=== PATIENT | male | born 1960 | race Hispanic/Latino ===

== ENCOUNTER 2018-08-07 05:30 | Observation (INO) | payer MEDICARE ==
[2018-08-05 11:33] LABS: BASOPHILS % (AUTO) 1.1 % (0.0-5.0); EOSINOPHILS % (AUTO) 0.9 % (0.0-8.0); HEMATOCRIT 48.6 % (42-54); LYMPHOCYTES % (AUTO) 19.6 % (21.0-51.0); MEAN CORPUSCULAR HEMOGLOBIN 28.9 pg (27.0-33.0); MEAN CORPUSCULAR HGB CONC 33.2 g/dL (32.0-36.0); MONOCYTES % (AUTO) 10.6 % (3.0-13.0); NEUTROPHILS % (AUTO) 67.8 % (40.0-77.0); PLATELET COUNT (AUTO) 246 K/uL (130-400); RED BLOOD CELL COUNT(AUTO) 5.59 MIL/uL (4.50-6.20); WHITE BLOOD COUNT (AUTO) 7.4 K/uL (4.8-10.8)
[2018-08-05 11:52] LABS: INR 1.04 (0.85-1.15); PARTIAL THROMBOPLASTIN TIME 31.2 SEC (26.3-35.5); PROTHROMBIN TIME 10.9 SEC (9.6-11.6)
[2018-08-05 11:53] LABS: CREATININE 1.4 mg/dL (0.5-1.5); POTASSIUM 4.4 mmol/L (3.5-5.1)
[2018-08-05 11:56] VITALS: BP 137/76
[2018-08-05 12:51] LABS: BILIRUBIN,URINE Negative (NEGATIVE); COLOR,URINE Yellow (YELLOW); GLUCOSE, URINE (UA) Negative (NEGATIVE); KETONES,URINE Negative (NEGATIVE); LEUKOCYTE ESTERASE ,URINE Negative (NEGATIVE); NITRATE,URINE Negative (NEGATIVE); OCCULT BLOOD,URINE Negative (NEGATIVE); PH,URINE 6.5 (5.0-8.0); PROTEIN,URINE Negative (NEGATIVE); UROBILINOGEN,URINE 0.2 mg/dL (0.2-1.0)
[2018-08-05 12:52] LABS: APPEARANCE,URINE CLEAR (CLEAR)
--- NOTE | 2018-08-06 11:26 | NUR ---
note reported elevated creat, orders to repeat and start hydration on arrival
[~2018-08-07] VITALS: Ht 180.3 cm; Wt 88.5 kg
[2018-08-07] VITALS (16 sets, daily range): BP systolic 98–122; BP diastolic 40–80
[~2018-08-07 05:30] MED LIST: AEC81 PO; ATOR40TA71 PO; CLOP75TA14 PO; ISOS30TA6 PO; METO25TA6 PO
[2018-08-07] MEDS ORDERED: SODIUM CHLORIDE 0.9% 1000ML 1,000 ML IV SCH ×2 (06:30→08:00)
[2018-08-07 06:44] LABS: CREATININE 1.4 mg/dL (0.5-1.5); POTASSIUM 4.3 mmol/L (3.5-5.1)
[2018-08-07] MEDS ORDERED: IOHEXOL 350 MG/ML 100ML INFUS..BTL IV ONE (11:08)
[2018-08-07] MEDS ORDERED: LIDOCAINE HCL 2% 20ML ONE (11:08)
[2018-08-07] MEDS ORDERED: HEPARIN SODIUM 1000UNIT/ML 10ML VIAL ONE (11:08)
[2018-08-07] MEDS ORDERED: IOHEXOL-350 50ML VIAL IV ONE (11:13)
[2018-08-07] MEDS ORDERED: CLOPIDOGREL BISULFATE 300 MG TAB ONE (11:49)
[2018-08-07] MEDS ORDERED: NITROGLYCERIN 4.1 GM SPRAY TL ONE (11:52)
[2018-08-07] MEDS ORDERED: MORPHINE SULFATE 5 MG/ML VIAL IVP SCH (12:15)
[2018-08-07] MEDS ORDERED: ONDANSETRON HCL 4 MG/2 ML VIAL IVP SCH (12:15)
[2018-08-07] MEDS ORDERED: ONDANSETRON HCL 4 MG/2 ML VIAL IVP PRN (12:15)
[2018-08-07] MEDS ORDERED: ACETAMINOPHEN 325 MG TAB PO PRN (12:15)
[2018-08-07] MEDS ORDERED: NITROGLYCERIN 0.4 MG SL TAB SL PRN (12:15)
[2018-08-07 18:24] LABS: INR 1.06 (0.85-1.15); PARTIAL THROMBOPLASTIN TIME 37.1 SEC (26.3-35.5); PROTHROMBIN TIME 11.1 SEC (9.6-11.6)
[2018-08-07] MEDS: METOPROLOL TARTRATE 25 MG TAB PO SCH (20:09)
[2018-08-07] MEDS ORDERED: ATROPINE SULFATE 0.1 MG/ML 10 ML SYG IVP ONE (21:03)
--- NOTE | 2018-08-07 21:25 | NUR ---
sheath discontinued at this time. manual pressure held for 20 minutes. hemostasis achieved. d-stat applied along with pressure dressing. no signs of bleeding, bruising, or hematoma noted. pedal pulses are strong and palpable. will continue to monitor. patient instructed to keep leg straight and that bedrest is until 4 AM.
[2018-08-08 04:07] VITALS: BP 95/60
[2018-08-08 07:34] VITALS: BP 105/63
--- NOTE | 2018-08-08 07:40 | NUR ---
SITTING UP IN BED. AAOX3, RESP.'S EVEN AND UNLABORED. DENIES ANY SOB, DENIES ANY CURRENT PAIN. RIGHT GROIN WITH D-STAT IN PLACE, WITH ELASTOPLAST OVER D-STAT WITH GAUZE; AREA SOFT, NO ECCHYMOSIS OR HEMATOMA NOTED. FEET WARM, PP'S (+) BILATERALLY. COMPLETE ASSESSMENT DONE. CALL LIGHT WITHIN REACH, VERBALIZED ABILITY TO USE. BED LOW, SIDE RAILS UP X2. SPOUSE IN SLEEPER AT BEDSIDE.
--- NOTE | 2018-08-08 08:05 | NUR ---
DR. Doroteo RODARTE IN ROOM SPEAKING WITH PT. AND PT.'S SPOUSE AT BEDSIDE RE:PLAN OF CARE.
[2018-08-08] MEDS ORDERED: ISOSORBIDE MONO 30MG TAB SR PO SCH (09:00)
[2018-08-08] MEDS: METOPROLOL TARTRATE 25 MG TAB PO SCH (09:00)
[2018-08-08] MEDS ORDERED: ASPIRIN 81 MG EC TAB PO SCH (09:00)
[2018-08-08] MEDS ORDERED: CLOPIDOGREL BISULFATE 75 MG TAB PO SCH (09:00)
[2018-08-08] MEDS ORDERED: ATORVASTATIN CALCIUM 40 MG TABLET PO SCH (09:00)
--- NOTE | 2018-08-08 10:47 | NUR ---
Margoth WORLEY CANT HOOKER, IN ROOM SPEAKING WITH PT. RE:PLAN OF CARE AND DISCHARGE DISPOSITION.
[2018-08-08 11:54] VITALS: BP 119/76
--- NOTE | 2018-08-08 12:05 | NUR ---
HL REMOVED, CATHETER INTACT. RIGHT GROIN D-STAT REMOVED. PUNCTURE SITE LEFT [employer]ESSOR, SLIGHT ECCHYMOSIS, NO HEMATOMA. DISCHARGE INSTRUCTIONS GIVEN, PT. AND SPOUSE VERBALIZED MUTUAL UNDERSTANDING WELL PT.'S BROTHER AT BEDSIDE. ALL QUESTIONS ANSWERED.
== END 2018-08-08 12:24 | disposition home or self-care (01) ==
LOC: DAH 05:30 → DAHIP 05:31 → DAH 05:31 → 2DH 15:03
PROVIDERS: ADMIT Internal Medicine; ATTEND Internal Medicine
DX: I25.119 Atherosclerotic heart disease of native coronary artery with unspecified angina pectoris (principal); E66.9 Obesity, unspecified; E78.5 Hyperlipidemia, unspecified; I10 Essential (primary) hypertension; I25.2 Old myocardial infarction; Z79.02 Long term (current) use of antithrombotics/antiplatelets; Z79.82 Long term (current) use of aspirin; Z79.01 Long term (current) use of anticoagulants
CPT/HCPCS: 36415 ×2; 71045; 80048 ×2; 81003; 85025; 85610 ×2; 85730 ×3; 93005 ×2; 93458; A4606; C1769; C1874; C1887; C1894; C9600; G0378 ×31; J1644 ×3; J3490; J7030; Q9965; Q9967 ×2; J0461

== ENCOUNTER 2021-08-05 12:13 | Emergency (ER) | payer MEDICARE ==
[~2021-08-05] VITALS: Ht 170.2 cm; Wt 81.6 kg
[~2021-08-05 12:13] MED LIST changes: -ISOS30TA6 PO; +ISOS30TA92 PO
[2021-08-05 12:46] LABS: BASOPHILS % (AUTO) 0.8 % (0.0-5.0); EOSINOPHILS % (AUTO) 2.8 % (0.0-8.0); HEMATOCRIT 47.4 % (42-54); LYMPHOCYTES % (AUTO) 16.3 % (21.0-51.0); MEAN CORPUSCULAR HEMOGLOBIN 29.2 pg (27.0-33.0); MEAN CORPUSCULAR HGB CONC 33.3 g/dL (32.0-36.0); MEAN CORPUSCULAR VOLUME 87.5 fL (79-99); MONOCYTES % (AUTO) 7.5 % (3.0-13.0); NEUTROPHILS % (AUTO) 72.2 % (40.0-77.0); PLATELET COUNT (AUTO) 218 K/uL (130-400); RED BLOOD CELL COUNT(AUTO) 5.42 MIL/uL (4.50-6.20); RED CELL DISTRIBUTION WIDTH 12.8 % (11.0-15.5); WHITE BLOOD COUNT (AUTO) 7.6 K/uL (4.8-10.8)
[2021-08-05] MEDS ORDERED: MECLIZINE HCL 25 MG TABLET PO ONE (13:00)
[2021-08-05] MEDS ORDERED: MECLIZINE HCL 25 MG TABLET ONE (13:06)
[2021-08-05 13:47] LABS: ALANINE AMINOTRANSFERASE 40 U/L (12-78); ALBUMIN 3.7 g/dL (3.5-5.0); ASPARTATE AMINOTRANSFERASE 22 U/L (10-37); BILIRUBIN,TOTAL 0.7 mg/dL (0.2-1.0); CARBON DIOXIDE 25 mmol/L (21-32); CHLORIDE 103 mmol/L (101-111); GLOMERULAR FILTR. RATE CALC 81 mL/min (>60); GLUCOSE,RANDOM 149 mg/dL (70-105); POTASSIUM 4.2 mmol/L (3.5-5.1); SODIUM SERUM 137 mmol/L (136-145); TOTAL PROTEIN, SERUM 6.8 g/dL (6.0-8.3); UREA NITROGEN, BLOOD 21 mg/dL (7-18)
[2021-08-05 13:48] LABS: CRP QUANTITATIVE < 2.00 mg/L (0.00-9.0)
[2021-08-05 14:19] LABS: APPEARANCE,URINE CLEAR (CLEAR); BILIRUBIN,URINE NEGATIVE (NEGATIVE); COLOR,URINE YELLOW (YELLOW); GLUCOSE, URINE (UA) NEGATIVE (NEGATIVE); KETONES,URINE NEGATIVE (NEGATIVE); LEUKOCYTE ESTERASE ,URINE NEGATIVE (NEGATIVE); NITRATE,URINE NEGATIVE (NEGATIVE); OCCULT BLOOD,URINE NEGATIVE (NEGATIVE); PH,URINE 6.5 (5.0-8.0); PROTEIN,URINE NEGATIVE (NEGATIVE); UROBILINOGEN,URINE 0.2 mg/dL (0.2-1.0)
[2021-08-05] MEDS ORDERED: MECL-226 PO (14:49)
[2021-08-05 14:55] VITALS: BP 110/70
== END 2021-08-05 14:55 | disposition home or self-care (01) ==
LOC: EDH 12:13
DX: R42 Dizziness and giddiness (principal); I10 Essential (primary) hypertension; I25.10 Atherosclerotic heart disease of native coronary artery without angina pectoris; E78.00 Pure hypercholesterolemia, unspecified; Z98.890 Other specified postprocedural states; Z79.82 Long term (current) use of aspirin; Z79.899 Other long term (current) drug therapy
CPT/HCPCS: 36415; 70450; 71045; 80053; 81003; 84484; 85025; 86140; 93005